=== PATIENT | female | born 1970 | race American Indian/Alaskan Native ===

== ENCOUNTER 2023-01-14 06:47 | Day surgery (SDC) | payer OTHER ==
[~2023-01-14 06:47] MED LIST: Scopolamine 1.5 MG Transdermal Patch TOP ONE
[2023-01-14] MEDS ORDERED: Lactated Ringers 1,000 ML IV SCH (07:15)
[2023-01-14] MEDS ORDERED: Bupivacaine 0.5% 30 ML SDV ONE (07:31)
[2023-01-14] MEDS ORDERED: Rocuronium Bromide 50 MG/5 ML Syringe ONE ×2 (07:35→09:46)
[2023-01-14] MEDS ORDERED: Ketorolac 30 MG/ML SDV ONE (07:35)
[2023-01-14] MEDS ORDERED: Sugammadex Sodium 200 MG/2 ML VIAL ONE (07:35)
[2023-01-14] MEDS ORDERED: Dexamethasone 4 MG/ML 5 ML MDV ONE (07:35)
[2023-01-14] MEDS ORDERED: Propofol 200 MG/20 ML SDV ONE (07:35)
[2023-01-14] MEDS ORDERED: fentaNYL 100 MCG/2 ML SDV ONE ×2 (07:35→09:45)
[2023-01-14] MEDS ORDERED: Ondansetron 4 MG/2 ML SDV ONE (07:35)
[2023-01-14] MEDS ORDERED: Lidocaine 2% 5 ML SDV ONE (07:35)
[2023-01-14] MEDS ORDERED: Phenylephrine 1% 10 MG/ML SDV ONE (07:37)
[2023-01-14] MEDS ORDERED: fentaNYL 50 MCG/ML SDV IVPUSH PRN (07:56)
[2023-01-14] MEDS ORDERED: Ondansetron 4 MG/2 ML SDV IVPUSH PRN (07:56)
[2023-01-14] MEDS ORDERED: HYDROmorphone 1 MG/ML Syringe IVPUSH PRN (07:56)
[2023-01-14] MEDS ORDERED: Metoclopramide 10 MG/2 ML SDV IVPUSH PRN (07:56)
[2023-01-14] MEDS ORDERED: droPERidol 5 MG/2 ML SDV IVPUSH PRN (07:56)
[2023-01-14] MEDS ORDERED: Albuterol 0.083% 2.5 MG/3 ML Neb Soln NEB PRN (07:56)
[2023-01-14] MEDS ORDERED: Naloxone 0.4 MG/ML SDV IVPUSH PRN (07:56)
[2023-01-14] MEDS ORDERED: Morphine 2 MG/ML SYRINGE IVPUSH PRN (07:56)
[2023-01-14] MEDS ORDERED: ceFAZolin 2 GM in Sodium Chloride 0.9% 50 ML IV ONE (08:00)
[2023-01-14] MEDS ORDERED: HYDROmorphone 2 MG/ML Syringe ONE (11:26)
[2023-01-14] MEDS ORDERED: droPERidol 5 MG/2 ML SDV ONE (13:08)
== END 2023-01-14 14:20 | disposition home or self-care (01) ==
LOC: MW.SDS 06:47
PROVIDERS: ATTEND Podiatrist Foot & Ankle Surgery
DX: M20.12 Hallux valgus (acquired), left foot (principal); M21.612 Bunion of left foot; F41.9 Anxiety disorder, unspecified; F33.1 Major depressive disorder, recurrent, moderate; F43.10 Post-traumatic stress disorder, unspecified; F12.90 Cannabis use, unspecified, uncomplicated; Z87.891 Personal history of nicotine dependence; Z88.2 Allergy status to sulfonamides; Z87.19 Personal history of other diseases of the digestive system; Z79.899 Other long term (current) drug therapy
CPT/HCPCS: 28297; A9270; J0131; J1100; J1170; J1790; J1885; J2370; J2405; J2704; J3010; J3490; J7120; 01480